=== PATIENT | male | born 2000 | race Caucasian/White ===

== ENCOUNTER 2025-03-16 10:40 | Emergency (ER) | payer OTHER, SELFPAY ==
[2025-03-16 10:53] VITALS: BP 205/89; PULSE 93; RESP 18; TEMP 36.6; O2SAT 100
--- NOTE | 2025-03-16 11:45 | PC.NURSE ---
Patient located in [facility]-spoke with him-he feels that since its been 2 hours without a reaction that he might just be ok Father commenting on the fact that patient i allergic to all bugs and it supposed to have an EPI- Pen but hasn't seen a doctor recently so does not have one-His PMD told them he needs appointment before they will give him a Rx. Patient encouraged to be seen since he is already here and would probably be able to get a current Rx for the EPI Pen. Patient agreed to stay until 1200
[2025-03-16] MEDS: predniSONE 40 MG, predniSONE 10 MG 50 MG PO (12:21)
[2025-03-16] MEDS: LORATADINE 10 MG TABLET PO (12:21)
--- NOTE | 2025-03-16 12:29 | ED.GENADULT ---
HPI - General Adult General Chief complaint: Skin/Abscess/Foreign Body Stated complaint: BUG BITE/STINGS Time Seen by Provider: 03/16/25 11:13 History of Present Illness HPI narrative: Parker Turcios is a 24-year-old male who presents today with complaints of being stung by a bee to his left upper arm and his abdomen though about an hour before he got here. He is not sure if he is allergic to bee venom but he states that he has had allergic reactions to mosquito bites that caused some swelling. He denies any shortness of breath, denies any swelling in his throat, denies any rashes. He states he is having some redness around where he was stung to the left upper arm and the abdomen. Related Data Allergies Allergy/AdvReac Type Severity Reaction Status Date / Time insect venom Allergy Unknown Verified 03/16/25 10:42 Review of Systems Review of Systems: All systems reviewed & are unremarkable except as noted in HPI and below Exam Narrative: GENERAL: Well-appearing, well-nourished, and in no acute distress. HEAD: Normocephalic, atraumatic. EYES: PERRLA and EOMI. ENT: Nares clear, no rhinorrhea or epistaxis. Mucous membranes moist. No oral airway swelling / no tongue swelling Oropharynx without tonsillar hypertrophy exudate or other lesions. NECK: Supple. No adenopathy or masses. No carotid bruits or JVD CHEST: Clear to auscultation. No respiratory distress. No wheezes rales or rhonchi HEART: Regular rate and rhythm. No murmur heard. Normal peripheral pulses. ABDOMEN: Soft, nontender, nondistended, normal active bowel sounds. EXTREMITIES: Normal range of motion. No edema. SKIN: + small raised red papule to left arm, mild pink skin surrounding, same small area to left abdomen. No urticaria NEURO: No focal deficits. Alert and oriented x3. PSYCH: Normal mood and affect. Course Vital Signs Vital signs: Vital Signs Temperature 36.6 C 03/16/25 10:53 Pulse Rate 93 03/16/25 10:53 Respiratory Rate 18 03/16/25 10:53 Blood Pressure 205/89 H 03/16/25 10:53 Pulse Oximetry 100 03/16/25 10:53 Oxygen Delivery Room Air 03/16/25 10:53 Temperature 37.2 C 03/16/25 13:22 Pulse Rate 81 03/16/25 12:40 Respiratory Rate 14 03/16/25 12:40 Blood Pressure 131/54 L 03/16/25 12:40 Pulse Oximetry 96 03/16/25 12:40 Oxygen Delivery Room Air 03/16/25 10:53 Medical Decision Making MDM Narrative Medical decision making narrative: Patient presented to the ED with a complaint of possible allergic reaction. . Physical exam revealed no rashes and without evidence of airway compromise, abdominal tenderness, or anaphylaxis Based on the patient's history and physical exam, my differential includes but is not limited to allergic reaction, bug bites, contact dermatitis Patient was given Claritin, steroids On re-evaluation, the patient was feeling improved. He has not had worsening of symptoms here and is stable for discharge and will go home with Zyrtec, famotidine, and prednisone and followup with PCP, return for further issues. Patient verbalizes understanding. while being in the ED pt has not had any evidence of anaphylaxis, or allergic reaction, treating pt cautiously as he is very concerned that he may develop this. He is asking for a script for the epi pen, I will send this for him FINAL IMPRESSION(S): 1. Bee sting Medical Records Medical records reviewed: Yes I reviewed the external patient's medical records. Vital Signs Vital Signs: Vital Signs Temperature 36.6 C 03/16/25 10:53 Pulse Rate 93 03/16/25 10:53 Respiratory Rate 18 03/16/25 10:53 Blood Pressure 205/89 H 03/16/25 10:53 Pulse Oximetry 100 03/16/25 10:53 Oxygen Delivery Room Air 03/16/25 10:53 Temperature 37.2 C 03/16/25 13:22 Pulse Rate 81 03/16/25 12:40 Respiratory Rate 14 03/16/25 12:40 Blood Pressure 131/54 L 03/16/25 12:40 Pulse Oximetry 96 03/16/25 12:40 Oxygen Delivery Room Air 03/16/25 10:53 Vitals reviewed Discharge Plan Discharge Clinical Impression: Bee sting Qualifiers: Encounter type: initial encounter Injury intent: accidental or unintentional Qualified Code(s): T63.441A - Toxic effect of venom of bees, accidental (unintentional), initial encounter Patient Disposition: Home Condition: Stable Instructions: Antibiotic Form Additional Instructions: Continue to take the cetirizine once daily to help with any signs of allergic reaction or skin irritation. Continue to take the prednisone for the next 5 days. Start taking Pepcid once daily for the next 10 days if you should develop any new or worsening symptoms such as throat swelling difficulty swallowing shortness of breath difficulty breathing hives rash or any other concerns return to the emergency department. Otherwise follow-up with your primary care doctor in the next week. As we discussed her blood pressure was quite high here, you may need to be started on medications to help with her blood pressure if he develops any symptoms like chest pain shortness of breath numbness tingling headache vision changes and also needs return to the emergency department. Patient Language: [place] Prescriptions: New cetirizine 10 mg tablet 10 mg PO DAILY PRN (Reason: allergy symptoms) Qty: 30 0RF famotidine [Pepcid] 20 mg tablet 20 mg PO DAILY Qty: 20 0RF prednisone 50 mg tablet 50 mg PO DAILY Qty: 5 0RF epinephrine [EpiPen] 0.3 mg/0.3 mL auto-injector 0.3 mg IM Q5-15M PRN (Reason: hypersensitivity reaction) Qty: 1 1RF Rx Instructions: do not exceed 3 doses per episode Follow-up/Referrals: Robert Vaca MD [Primary Care Provider, Family Practice] - 1 Week Time of Disposition: 12:41
[2025-03-16 12:40] VITALS: BP 131/54; PULSE 81; RESP 14; O2SAT 96
[2025-03-16 13:22] VITALS: TEMP 37.2
--- OUTSIDE RECORDS SUMMARY | 2025-03-16 14:35 | XMS_ITS | Clinical Summary ---
Author Organization [facility] Address [address] [place] [address] Phone Care Team Providers Care Testing Shaking Shipping Name Role Phone Provider, None Primary Care Provider Unavailabl e Allergies No known active allergies Medications hydroCHLOROthiaz jordan 25 MG Tablet Take 1 Tab by mouth daily. 30 Tab 07/14/2020 Active Social History Tobacco Use Types Packs/Day Years Used Date Smoking Tobacco: Never Alcohol Use Standard Drinks/Week Comments Never 0 (1 standard drink = 0.6 oz pur e alcohol) AUDIT-C Answer Date Recorded Q1: How often do you have a drink containing alc ohol? Never 07/14/2020 Average Number of Drinks Not on file 021 Frequency of Binge Drinking Not on file 06/23 Sex and Gender Information Value Date Recorded Sex Assigned at Not on file Legal Sex Male 3:32 PM [employer] Gender Identity Not on file Sexual Orientation Not on file Last Filed Vital Signs Vital Sign Reading Time Taken Comments Blood Pressure 196/89 07/08/2024 2:38 PM [employer] Pulse 98 07/08/2024 2:38 PM [employer] Temperature 37.1 C (98.8 F) 07/08/2024 2:38 PM [employer] Respiratory Rate 16 07/08/2024 2:38 PM [employer] Oxygen Saturation 99% 07/08/2024 2:38 PM [employer] Inhaled Oxygen Concentration - - Weight 226.8 kg (500 lb) 07/08/2024 2:38 PM [employer] Height 188 cm (6' 2) 07/08/2024 2:38 PM [employer] Body Mass Index 64.2 07/08/2024 2:38 PM [employer] [facility] Plan of Treatment Not on file Insurance [place]ICAID [place] Care Teams Testing Shaking Shipping Relationship Specialty Start Date End Date Provider, None [place] PCP - General 07/14/20
== END 2025-03-16 13:24 | disposition home or self-care (01) ==
PROVIDERS: Emergency Provider Nurse Practitioner Family; PCP Emergency Medicine
DX: T63.441A Toxic effect of venom of bees, accidental (unintentional), initial encounter (principal)
CPT/HCPCS: 99283; A9270; J7512